=== PATIENT | female | born 1960 | race African-American/Black ===

== ENCOUNTER 2017-05-08 17:55 | Inpatient (IN) | payer SELFPAY ==
[~2017-05-08] VITALS: Ht 167.6 cm; Wt 103.2 kg
[2017-05-08] MEDS ORDERED: BACT400T PO (18:30)
[2017-05-08] MEDS ORDERED: trimetazidine PO (18:30)
[2017-05-08] MEDS ORDERED: [UNRECOGNIZED DRUG - REMARK] PO (18:30)
[2017-05-08] MEDS ORDERED: ASPIRIN 81 MG CHEW TABLET PO ONE (18:45)
[2017-05-08 18:49] LABS: BASO % 0.5 % (0.0-1.0); EOS # 0.2 K/mm3 (0.0-0.50); LARGE UNSTAINED CELL # 0.1 K/mm3 (0.0-0.4); LARGE UNSTAINED CELL % 2.5 % (0.0-4.0); LYMPH # 2.5 K/mm3 (1.5-4.5); LYMPH % 42.2 % (24.0-44.0); MEAN CORPUSCULAR HEMOGLOBIN 26.9 pg (27.0-33.0); MEAN CORPUSCULAR HGB CONC 32.6 g/dl (32.0-36.5); MEAN CORPUSCULAR VOLUME 82.5 fl (80.0-96.0); MONO # 0.3 K/mm3 (0.0-0.8); MONO % 4.8 % (0.0-5.0); NEUTROPHILS # 2.6 K/mm3 (1.8-7.7); NEUTROPHILS % 45.9 % (36.0-66.0); PLATELET COUNT, AUTOMATED 287 k/mm3 (150-450); RED CELL DISTRIBUTION WIDTH 14.8 % (11.5-14.5); WHITE BLOOD COUNT 5.7 K/mm3 (4.0-10.0)
[2017-05-08] MEDS ORDERED: ginko biloba PO (19:01)
[2017-05-08 19:03] LABS: BLOOD UREA NITROGEN 11 MG/DL (7-18); CALCIUM LEVEL 9.2 MG/DL (8.5-10.1); CARBON DIOXIDE LEVEL 29 MEQ/L (21-32); CHLORIDE LEVEL 104 MEQ/L (98-107); CREATININE FOR GFR 1.07 MG/DL (0.55-1.02); GLUCOSE, FASTING 93 MG/DL (70-105); SODIUM LEVEL 140 MEQ/L (136-145)
--- NOTE | 2017-05-08 19:22 | ECGEPIP ---
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
--- NOTE | 2017-05-08 19:53 | REP ---
Clinical: Chest pain . Comparison: None. Findings: The mediastinum and cardiac silhouette are stable and within normal limits for portable technique. The lung alcaraz are clear without acute consolidation, effusion, or pneumothorax. Skeletal structures are intact. Impression: No acute cardiopulmonary process appreciated. Signed by Osito Hermosillo MD 05/08/2017 07:45 P
[2017-05-08 19:57] LABS: ANION GAP 7 MEQ/L (8-16)
[2017-05-08] MEDS ORDERED: ACETAMINOPHEN TAB 650MG DOSE (2X325MG) PO ONE (21:45)
[2017-05-08] MEDS ORDERED: ACETAMINOPHEN TAB 650MG DOSE (2X325MG) PO PRN (23:30)
[2017-05-08] MEDS ORDERED: ONDANSETRON 4MG/2ML VIAL (J2405) IV PRN (23:30)
[2017-05-08] MEDS ORDERED: VITATAB73 PO (23:35)
[2017-05-08] MEDS ORDERED: [UNRECOGNIZED DRUG - OTHER] PO (23:35)
--- NOTE | 2017-05-08 23:53 | ECGEPIP ---
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
[2017-05-09 00:25] VITALS: BP 143/86
[2017-05-09 04:00] VITALS: BP 143/94
[2017-05-09] MEDS ORDERED: NS 1,000 ML IV SCH (05:15)
[2017-05-09 08:00] VITALS: BP 140/86
[2017-05-09 08:03] LABS: BASO % 0.5 % (0.0-1.0); EOS # 0.2 K/mm3 (0.0-0.50); EOS % 4.6 % (0.0-3.0); LARGE UNSTAINED CELL # 0.2 K/mm3 (0.0-0.4); LARGE UNSTAINED CELL % 3.6 % (0.0-4.0); LYMPH % 37.9 % (24.0-44.0); MEAN CORPUSCULAR HEMOGLOBIN 27.3 pg (27.0-33.0); MEAN CORPUSCULAR HGB CONC 33.4 g/dl (32.0-36.5); MEAN CORPUSCULAR VOLUME 81.9 fl (80.0-96.0); MONO # 0.3 K/mm3 (0.0-0.8); MONO % 5.1 % (0.0-5.0); NEUTROPHILS # 2.6 K/mm3 (1.8-7.7); NEUTROPHILS % 48.4 % (36.0-66.0); PLATELET COUNT, AUTOMATED 276 k/mm3 (150-450); RED CELL DISTRIBUTION WIDTH 14.5 % (11.5-14.5); WHITE BLOOD COUNT 5.3 K/mm3 (4.0-10.0)
[2017-05-09] MEDS ORDERED: PANTOPRAZOLE 40MG TAB (PROTONIX) PO SCH (09:00)
[2017-05-09] MEDS ORDERED: ASPIRIN 81 MG ENTERIC TAB PO SCH (09:00)
[2017-05-09] MEDS ORDERED: AUGMENTIN 875 MG TAB PO SCH (09:00)
--- NOTE | 2017-05-09 09:54 | ECGEPIP ---
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
[2017-05-09 10:41] LABS: ALBUMIN 3.3 GM/DL (3.2-5.2); ALBUMIN/GLOBULIN RATIO 0.72 (1.00-1.93); ALKALINE PHOSPHATASE 87 U/L (45-117); ALT/SGPT 55 U/L (12-78); ANION GAP 11 MEQ/L (8-16); AST/SGOT 60 U/L (15-37); BILIRUBIN,TOTAL 0.5 MG/DL (0.2-1.0); BLOOD UREA NITROGEN 13 MG/DL (7-18); CALCIUM LEVEL 9.1 MG/DL (8.5-10.1); CARBON DIOXIDE LEVEL 25 MEQ/L (21-32); CHLORIDE LEVEL 108 MEQ/L (98-107); CREATININE FOR GFR 0.91 MG/DL (0.55-1.02); GLOMERULAR FILTRATION RATE > 60.0 (>51); GLUCOSE, FASTING 108 MG/DL (70-105); POTASSIUM SERUM 3.8 MEQ/L (3.5-5.1); SODIUM LEVEL 144 MEQ/L (136-145); T UPTAKE 32 % (30-39); THYROXINE (T4) 10.6 UG/DL (4.5-12.0); TOTAL PROTEIN 7.9 GM/DL (6.4-8.2)
[2017-05-09 12:00] VITALS: BP 126/87
[2017-05-09 13:25] LABS: CHOLESTEROL LEVEL 129 MG/DL (<200); TRIGLYCERIDES LEVEL 112 MG/DL (<150)
[2017-05-09 13:26] LABS: MAGNESIUM LEVEL 2.2 MG/DL (1.8-2.4)
[2017-05-09] MEDS ORDERED: AMOX875T2 PO (14:04)
[2017-05-09] MEDS ORDERED: ASPI81TAEC PO (14:04)
--- NOTE | 2017-05-09 15:04 | DSES ---
DATE OF ADMISSION: 05/08/2017 DATE OF DISCHARGE: PRIMARY CARE PROVIDER: The patient does not have a primary care provider in [place], sees a primary care provider in [facility]. The patient will be returning by the of May and will not like to get a primary care provider in [place]. FINAL DIAGNOSES: 1. Angina. 2. Rhabdomyolysis. HISTORY OF PRESENT ILLNESS: This is a 57-year-old female patient from [facility], here for a visit, with underlying medical history of angina, hypertension, who presented with substernal chest pain radiating to the left shoulder, acute onset and lasting for about 1 to 2 hours, resolved with baby aspirin. The patient does not take aspirin at home. Had a similar episode last year. Denies any fevers or chills. Recently was doing slightly more in terms of house chores, cooking and taking care of her grandchild, who is a little bit heavy. Otherwise, denies any fevers, chills, nausea, vomiting, diarrhea. Feels comfortable. Pain has resolved this morning. Overnight, the patient was placed on IV hydration. The patient reported some left ear discomfort, suspicious of her getting an ear infection but denies any fevers or chills. HOSPITAL COURSE: The patient was admitted to the hospital and IV fluids were provided. EKG was done. The patient was given aspirin and has no further episodes of chest pain. Cardiac enzymes were done and troponin has been negative times four. Total CK has been mildly elevated. IV fluids was given with improvement. Kidney function has also improved. Thyroid functions were appreciated. Telemetry was monitored. The patient currently is asymptomatic and comfortable. Tolerating diet. D-dimer was negative. Ready for discharge for further care as an outpatient. It was offered to the patient to get a primary care provider in [place], but the patient has refused, and subsequently the patient was discharged for further care as an outpatient by her primary doctor in [facility] once she returns in the next 2 to 3 weeks. VITAL SIGNS: Temperature 98, pulse 87, respirations 18, blood pressure 126/87, pulse oximetry 99% on room air. GENERAL: The patient is alert, oriented times three. No acute distress. HEENT: Normocephalic, atraumatic. Right tympanic membrane clear. Left tympanic membrane seems to have some mucous effusion behind the tympanic membrane, nontender. PULMONARY: Bilaterally clear to auscultation. CARDIAC : Regular rate and rhythm. Normal S1, S2. ABDOMEN: Soft, nontender, nondistended. Positive bowel sounds. EXTREMITIES: No edema in bilateral lower extremities. FINAL DIAGNOSIS: 1. Otitis media. 2. Angina. 3. Hypertension. LABORATORY DATA: WBC 5.3, hemoglobin and hematocrit 11.8/35.3, platelets 276. Sodium 144, potassium 3.8, chloride 108, bicarbonate 25, BUN 13, creatinine 0.9. Cardiac enzymes and troponin negative times three. Total CK 1046, 1064, 813, 832. DISCHARGE MEDICATIONS: - Augmentin 875 mg by mouth twice a day for 7 days - aspirin 81 mg by mouth daily - nimesulide - trimetazidine 35 mg by mouth daily - vitamin B complex by mouth daily continued The patient is instructed to followup with primary care provider as soon as she returns to [facility]. Return to the hospital as soon as possible if symptoms return.
[2017-05-09] MEDS ORDERED: ATORVASTATIN 20 MG TAB PO SCH (21:00)
== END 2017-05-09 15:17 | disposition home or self-care (01) | DRG 198 ==
LOC: M ED 17:55 → M ED INP 23:00
PROVIDERS: ATTEND Hospitalist
DX: I20.9 Angina pectoris, unspecified (principal); M62.82 Rhabdomyolysis; I10 Essential (primary) hypertension; H66.90 Otitis media, unspecified, unspecified ear

== ENCOUNTER → 2023-07-25 | Outpatient (CLI) | payer BC ==
[~2023-07-25] MED LIST: AMOX875T2 PO; ASPI-569 PO; BACT400T PO; VITATAB73 PO; [UNRECOGNIZED DRUG - OTHER] PO; [UNRECOGNIZED DRUG - REMARK] PO; ginko biloba PO; trimetazidine PO
[2023-07-25 14:13] LABS: BASO % 0.6 % (0.0-1.0); EOS # 0.2 10^3/uL (0.0-0.5); HEMATOCRIT 33.7 % (36.0-47.0); HEMOGLOBIN 10.9 g/dl (12.0-15.5); LYMPH # 2.1 10^3/uL (1.5-5.0); LYMPH % 41.9 % (24.0-44.0); MEAN CORPUSCULAR HEMOGLOBIN 26.8 pg (27.0-33.0); MEAN CORPUSCULAR HGB CONC 32.3 g/dl (32.0-36.5); MEAN CORPUSCULAR VOLUME 82.8 fl (80.0-96.0); MONO # 0.4 10^3/uL (0.0-0.8); MONO % 8.7 % (2.0-8.0); NEUTROPHILS # 2.3 10^3/uL (1.5-8.5); NEUTROPHILS % 44.6 % (36.0-66.0); PLATELET COUNT, AUTOMATED 263 10^3/uL (150-450); RED BLOOD COUNT 4.07 10^6/uL (4.00-5.40); WHITE BLOOD COUNT 5.1 10^3/uL (4.0-10.0)
[2023-07-25 14:30] LABS: CREATININE, URINE 118.2 MG/DL
[2023-07-25 14:31] LABS: ALBUMIN 3.6 G/DL (3.2-5.2); ALKALINE PHOSPHATASE 85 U/L (46-116); ALT/SGPT 38 U/L (7.0-40); AST/SGOT 49 U/L (<34); BILIRUBIN,TOTAL 0.5 MG/DL (0.3-1.2); BLOOD UREA NITROGEN 11 MG/DL (9-23); CALCIUM LEVEL 9.1 MG/DL (8.3-10.6); CARBON DIOXIDE LEVEL 29 MMOL/L (20-31); CHLORIDE LEVEL 107 MMOL/L (98-107); CHOLESTEROL LEVEL 121 MG/DL (<200); CHOLESTEROL RISK RATIO 2.73 (<5); CREATININE FOR GFR 0.93 MG/DL (0.55-1.30); GLOMERULAR FILTRATION RATE > 60.0 (>45); GLUCOSE, FASTING 142 MG/DL (74-106); HDL CHOLESTEROL 44.3 MG/DL (>40); LDL CHOLESTEROL 56.7 MG/DL (<100); MAGNESIUM LEVEL 1.7 MG/DL (1.8-2.4); NON-HDL-C 76.7 MG/DL; POTASSIUM SERUM 4.5 MMOL/L (3.5-5.1); SODIUM LEVEL 142 MMOL/L (136-145); TOTAL PROTEIN 7.4 G/DL (5.7-8.2); TRIGLYCERIDES LEVEL 100 MG/DL (<150)
[2023-07-25 14:32] LABS: MAU/CREAT RATIO 10.9 MCG/MG (0.0-30.0)
[2023-07-25 14:34] LABS: HEMOGLOBIN A1c 7.2 % (4.0-6.0)
[2023-07-26 09:41] LABS: IRON (FE) 84 UG/DL (50-170); PERCENT SATURATION 28.1 % (13.2-45.0); TOTAL IRON BINDING CAPACITY 299 UG/DL (250-425)
[2023-07-26 09:44] LABS: FERRITIN 163.8 NG/ML (7.3-270.7)
== END ==
LOC: M PLALAB 10:06
PROVIDERS: ATTEND Nurse Practitioner Family
DX: I10 Essential (primary) hypertension (principal); E11.69 Type 2 diabetes mellitus with other specified complication; Z13.220 Encounter for screening for lipoid disorders; D64.9 Anemia, unspecified

== ENCOUNTER → 2023-08-14 | Outpatient (CLI) | payer BC | LOC: M WHC 12:39 | PROVIDERS: ATTEND Nurse Practitioner Family | DX: Z12.31 Encounter for screening mammogram for malignant neoplasm of breast (principal) ==

== ENCOUNTER → 2023-08-21 | Outpatient (CLI) | payer BC ==
[2023-08-21 18:09] LABS: HEMATOCRIT 34.6 % (36.0-47.0)
[2023-08-21 18:36] LABS: FREE T4 0.96 NG/DL (0.89-1.76); THYROID STIMULATING HORMONE 5.078 uIU/ML (0.55-4.78)
== END ==
LOC: M PLALAB 15:08
PROVIDERS: ATTEND Student in an Organized Health Care Education/Training Program
DX: R20.2 Paresthesia of skin (principal); R05.8 Other specified cough; R91.8 Other nonspecific abnormal finding of lung field

== ENCOUNTER → 2024-05-30 | Outpatient (CLI) | payer BC ==
[2024-05-30 15:31] LABS: BASO % 0.4 % (0.0-1.0); EOS # 0.2 10^3/uL (0.0-0.5); EOS % 2.9 % (0.0-3.0); HEMATOCRIT 32.7 % (36.0-47.0); HEMOGLOBIN 10.9 g/dl (12.0-15.5); LYMPH # 1.6 10^3/uL (1.5-5.0); LYMPH % 31.5 % (24.0-44.0); MEAN CORPUSCULAR HEMOGLOBIN 28.5 pg (27.0-33.0); MEAN CORPUSCULAR HGB CONC 33.3 g/dl (32.0-36.5); MEAN CORPUSCULAR VOLUME 85.4 fl (80.0-96.0); MONO # 0.4 10^3/uL (0.0-0.8); MONO % 7.2 % (2.0-8.0); NEUTROPHILS % 57.6 % (36.0-66.0); PLATELET COUNT, AUTOMATED 286 10^3/uL (150-450); RED BLOOD COUNT 3.83 10^6/uL (4.00-5.40); WHITE BLOOD COUNT 5.2 10^3/uL (4.0-10.0)
[2024-05-30 15:36] LABS: ALBUMIN 3.4 G/DL (3.2-5.2); ALKALINE PHOSPHATASE 143 U/L (46-116); ALT/SGPT 31 U/L (7.0-40); AST/SGOT 53 U/L (<34); BILIRUBIN,TOTAL 0.8 MG/DL (0.3-1.2); BLOOD UREA NITROGEN 13 MG/DL (9-23); CALCIUM LEVEL 9.3 MG/DL (8.3-10.6); CARBON DIOXIDE LEVEL 28 MMOL/L (20-31); CHLORIDE LEVEL 107 MMOL/L (98-107); CHOLESTEROL LEVEL 111 MG/DL (<200); CHOLESTEROL RISK RATIO 3.68 (<5); CREATININE FOR GFR 0.82 MG/DL (0.55-1.30); GLOMERULAR FILTRATION RATE > 60.0 (>45); GLUCOSE, FASTING 118 MG/DL (74-106); HDL CHOLESTEROL 30.1 MG/DL (>40); LDL CHOLESTEROL 61.3 MG/DL (<100); MAGNESIUM LEVEL 1.4 MG/DL (1.8-2.4); NON-HDL-C 80.9 MG/DL; POTASSIUM SERUM 4.7 MMOL/L (3.5-5.1); SODIUM LEVEL 141 MMOL/L (136-145); TOTAL PROTEIN 7.5 G/DL (5.7-8.2); TRIGLYCERIDES LEVEL 98 MG/DL (<150)
[2024-05-30 15:37] LABS: FOLATE 18.47 NG/ML (>5.4); VITAMIN B12 LEVEL 351 PG/ML (211-911)
[2024-05-30 15:38] LABS: THYROID STIMULATING HORMONE 8.934 uIU/ML (0.55-4.78)
[2024-05-30 15:53] LABS: HEMOGLOBIN A1c 6.2 % (4.0-6.0)
== END ==
LOC: M PLALAB 12:22
PROVIDERS: ATTEND Nurse Practitioner Family
DX: E83.42 Hypomagnesemia (principal); D64.9 Anemia, unspecified; E53.8 Deficiency of other specified B group vitamins; E03.8 Other specified hypothyroidism; I10 Essential (primary) hypertension; E11.69 Type 2 diabetes mellitus with other specified complication; K76.0 Fatty (change of) liver, not elsewhere classified; Z13.220 Encounter for screening for lipoid disorders

== ENCOUNTER → 2025-03-24 | Outpatient (CLI) | payer BC | LOC: M WHC 09:08 | PROVIDERS: ATTEND Nurse Practitioner Family | DX: Z12.31 Encounter for screening mammogram for malignant neoplasm of breast (principal) ==